=== PATIENT | female | born 1980 | race Caucasian/White ===

== ENCOUNTER 2017-03-25 10:56 | Emergency (ER) | payer BC ==
[~2017-03-25] VITALS: Wt 59.0 kg
[2017-03-25 12:59] LABS: BODY FLUID WBC 19700 /uL
[2017-03-25 13:24] LABS: BF LYMPHOCYTES 1 %; BF MONOCYTES 30 %; BF NEUTROPHILS 69 %
== END 2017-03-25 13:28 | disposition home or self-care (01) ==
LOC: ED 10:56
PROVIDERS: Emergency Medicine
DX: M25.461 Effusion, right knee (principal); F17.200 Nicotine dependence, unspecified, uncomplicated